=== PATIENT | female | born 1985 | race Caucasian/White ===

== ENCOUNTER → 2019-04-04 | Outpatient (RCR) | payer OTHER | LOC: PT 14:09 | PROVIDERS: ATTEND Neurological Surgery | DX: M75.51 Bursitis of right shoulder (principal); M25.511 Pain in right shoulder; M25.611 Stiffness of right shoulder, not elsewhere classified; M54.2 Cervicalgia; M50.120 Mid-cervical disc disorder, unspecified level; M62.81 Muscle weakness (generalized) ==

== ENCOUNTER 2019-04-12 14:04 | Outpatient (RCR) | payer OTHER | END 2019-05-05 | LOC: PT 14:04 | PROVIDERS: ATTEND Neurological Surgery | DX: M75.51 Bursitis of right shoulder (principal); M25.511 Pain in right shoulder; M25.611 Stiffness of right shoulder, not elsewhere classified; M25.60 Stiffness of unspecified joint, not elsewhere classified; M54.2 Cervicalgia; M62.81 Muscle weakness (generalized) ==